=== PATIENT | female | born 1940 | race Caucasian/White ===

== ENCOUNTER 2016-08-02 09:21 | Inpatient (IN) ==
[2016-08-02] MEDS ORDERED: LASIX IV ONE (09:56)
[2016-08-02] MEDS ORDERED: DUONEB (A & A) INH ONE (09:56)
[2016-08-02 10:38] LABS: BASO% 0.1 % (0.0-0.8); EOS# 0.07 X1000 (0.0-0.7); EOS% 0.4 % (0.0-10.0); HEMATOCRIT 39.8 % (37.0-47.0); HEMOGLOBIN 13.6 g/dL (12.0-16.0); IMM GRAN# 0.03 X1000 (0.0-0.04); IMM GRAN% 0.2 % (0.0-0.5); INR 0.96; LYMPH# 0.92 X1000 (1.2-3.4); LYMPH% 5.9 % (20.5-51.1); MANUAL DIFF NEEDED? NO; MCH 30.3 PG (27-31); MCHC 34.2 g/dL (33-37); MCV 88.6 FL (81-99); MONO# 0.91 X1000 (0.11-0.59); MONO% 5.8 % (1.7-9.3); MPV 9.2 FL (7.4-10.4); NEUT% 87.6 % (42.2-75.2); PLT 297 X1000 (130-400); RBC 4.49 XMIL (4.2-5.4)
[2016-08-02 10:52] LABS: AGAP 17; ALKALINE PHOSPHATASE 84 U/L (32-104); BUN 12 mg/dL (8-22); CALCIUM 9.2 mg/dL (8.8-10.2); CHLORIDE 90 mmol/L (98-107); COSMO 274; GOT 34 U/L (10-30); GPT 19 U/L (10-36); MAGNESIUM 1.8 mg/dL (1.5-2.7); POTASSIUM 3.6 mmol/L (3.5-5.1); SODIUM 136 mmol/L (136-145); TCO2 29 mmol/L (25-35); TOTAL BILIRUBIN 0.85 mg/dL (0.20-1.00); TOTAL PROTEIN 7.3 g/dL (6.3-8.3)
[2016-08-02 11:01] LABS: CK PROFILE 336 U/L (24-173)
[2016-08-02 11:25] LABS: CK INDEX 1.9 (0.0-2.5); CK-MB 6.39 ng/mL (0.0-5.0)
[2016-08-02] MEDS ORDERED: ROCEPHIN 1 GM/NS 1 GM/50 ML IVPB IV ONE (11:26)
[2016-08-02] MEDS ORDERED: ZITHROMAX 500 MG/NS 500 MG/250 ML IVPB IV ONE (11:27)
--- NOTE | 2016-08-02 11:28 | EKG Report ---
Test Performed on : 08/02/2016 09:30:52 AM Test Reason : Chest Pain Blood Pressure : / mmHG Vent. Rate : 067 BPM Atrial Rate : 067 BPM P-R Int : 144 ms QRS Dur : 084 ms QT Int : 384 ms P-R-T Axes : 042 008 047 degrees QTc Int : 405 ms Normal sinus rhythm. Nonspecific ST and T wave abnormality Abnormal ECG When compared with ECG of 02-AUG-2016 09:30, (Unconfirmed) No significant change was found Unconfirmed Result
[2016-08-02] MEDS ORDERED: MORPHINE IV PRN (11:49)
[2016-08-02] MEDS ORDERED: NS 1,000 ML IV ONE (11:49)
--- NOTE | 2016-08-02 11:54 | PROVIDER DOCUMENTATION ---
This chart was entered by Yordan Cope Scribe, acting as scribe for Joy Diego Jr, MD. HPI-Respiratory General - General Chief Complaint: Shortness of Breath Stated Complaint: RESP. DISTRESS Time Seen by Provider: 08/02/16 09:32 Source: patient Allergies/Adverse Reactions: Patient Allergies Allergy/AdvReac Type Severity Reaction Status Date / Time acetaminophen [From Tylenol] Allergy Intermediate FLUSHING Verified 07/11/14 16: 12 budesonide [From Symbicort] Allergy Intermediate SHORTNESS Verified 07/11/14 16: 12 OF BREATH celecoxib [From Celebrex] Allergy Intermediate NAUSEA Verified 07/11/14 16:12 formoterol fumarate * Allergy Intermediate SHORTNESS Verified 07/11/14 16:12 [From Symbicort] OF BREATH meloxicam [From Mobic] Allergy Intermediate NAUSEA Verified 07/11/14 16:12 Penicillins Allergy Intermediate HIVES Verified 07/11/14 16:12 Sulfa (Sulfonamide Allergy Intermediate RASH Verified 07/11/14 16:12 Antibiotics) [Sulfa(Sulfonamide Antibiotics)] pregabalin [From Lyrica] Allergy Unknown DRY COUGH Verified 01/13/15 23:30 methocarbamol [From Robaxin] AdvReac SHORTNESS Verified 01/13/15 23:30 OF BREATH Home Medications: Home Medication List Medication Instructions Recorded Confirmed Last Taken Type ATORVAstatin [Lipitor] 40 mg PO QHS 08/02/16 08/02/16 08/02/16 07:00 History 40 MG Amlodipine Besylate 2.5 mg PO DAILY 08/02/16 08/02/16 08/02/16 07:00 History 2.5 MG Aspirin EC 81 mg PO DAILY 08/02/16 08/02/16 08/02/16 07:00 History 81 MG Duloxetine [Cymbalta] 30 mg PO BID 08/02/16 08/02/16 08/02/16 07:00 History 30 MG Furosemide 40 mg PO DAILY 08/02/16 08/02/16 08/02/16 07:00 History 40 MG Levothyroxine [Synthroid] 100 microgm PO DAILY 08/02/16 08/02/16 08/02/16 07:00 History 100 MICROGM Losartan/Hctz [Hyzaar 100/12.5 mg 1 each PO DAILY 08/02/16 08/02/16 08/02/16 07: 00 History Tab] 1 EACH Nebivolol HCl [Bystolic] 10 mg PO DAILY 08/02/16 08/02/16 08/02/16 07:00 History 10 MG Potassium Chloride [Klor-Con 10] 10 meq PO DAILY 08/02/16 08/02/16 08/02/16 07: 00 History 10 MEQ Tiotropium [place] Inhaler 18 mcg IH DAILY 08/02/16 08/02/16 08/02/16 07:00 History [Spiriva] 18 MCG - History of Present Illness-Resp Nature of Presenting Problem: patient is a 75 y/o F that presents with 24 hours of shortness of breath. Report today it is worse and worse with coughing/exertion. Patient reports a productive cough(yellow/green sputum). Denies fever but does have pain all over. She is on 02 at home 18/10 at 4lpms. Patient's RA saturation was 77% on arrival to ER> Quality of Pain: reports: tightness Severity in ED: reports: moderate Onset/Duration: reports: gradual, 24 hours ago Timing: reports: still present, getting worse Context: denies: out of meds, aspiration/choking Cough Quality/Degree: reports: moderate, productive cough, sputum (yellow,green) Episode Frequency: frequent episodes Current Respiratory Medication Therapy: Initiated see nurses note Modifying Factors: worse with: exertion, coughing Associated Symptoms: reports: cough, hurts to breathe, shortness of breath, short of breath, wheezing. denies: earache, flu-like symptoms, nasal congestion , nasal drainage Similar Symptoms Previously?: Yes Recently seen or treated by another doctor?: No Review of Systems - Adult - REVIEW OF SYSTEMS - ADULT Constitutional: denies: chills, fever Eyes: denies: decreased vision, blurred vision, double vision Ears, Nose, Mouth & Throat: denies: ear pain, epistaxis, sinus problem, throat pain, throat swelling Cardiovascular: denies: chest pain, palpitations Respiratory: reports: cough, dyspnea on exertion, shortness of breath, wheezing Gastrointestinal: denies: abdominal pain, diarrhea, nausea, vomiting Genitourinary: reports: no symptoms reported Musculoskeletal: reports: muscle aches. denies: bone pain, back pain, joint pain, neck pain Integumentary: reports: no symptoms reported Neurological: denies: dizziness/vertigo, headache/migraines, seizure, syncope Psychiatric: reports: no symptoms reported Endocrine: reports: no symptoms reported Hematologic/Lymphatic: reports: no symptoms reported Allergic/Immunologic: reports: no symptoms reported All Other Systems: Reviewed and Negative Past History - Adult - PAST MEDICAL HISTORY-ADULT Review of Records: reports: Old Records Reviewed, Nursing Assessment Review, Medications Reviewed Cardiovascular: reports: CAD, HTN, hyperlipidemia Respiratory: reports: asthma, COPD Gastrointestinal: reports: GERD Neurological: reports: TIA Other Conditions: reports: other (skin CA) - PRIOR SURGERIES/PROCEDURES Surgical/Procedure History: reports: hysterectomy, tonsillectomy, joint replacement - IMMUNIZATION STATUS Childhood Immunizations: See Nurse Assessment Flu Vaccine: See Nurse Assessment - FAMILY HISTORY Family History: reviewed, not pertinent - SOCIAL HISTORY Smoking: quit greater than 1 year, cigarettes Living Situation: family Physical Exam-General - PHYSICAL EXAM-ADULT Initial Vital Signs Reviewed: Yes - CONSTITUTIONAL General Appearance: alert, mild distress, obese - EYES Eyes: PERRL/EOMI, pink conjunctivae - HEAD, EARS, NOSE, MOUTH & THROAT HENMT: normocephalic/atraumatic, moist mucous membranes, normal ENT inspection - NECK Neck: non-tender, full range of motion, normal inspection - RESPIRATORY Respiratory: no respiratory distress, no accessory muscle use, rhonchi ( bilateral, more on the right than left), wheezing (expiratory) - CARDIOVASCULAR Cardiovascular: regular rate, rhythm, no murmur - GASTROINTESTINAL (ABDOMEN) Abdominal Exam: normal bowel sounds, non tender, soft - MUSCULOSKELETAL Extremity: normal range of motion, no pedal edema, no calf tenderness - SKIN Integumentary: warm/dry, other (bandage to right foot) - NEUROLOGIC Neurologic: grossly normal, no motor/sensory deficits - PSYCHIATRIC Psych/Mental Status: normal mood/affect, normal thought content, normal thought process, oriented x 3 Progress - PLAN OF CARE/RESULTS Progress/Plan/Lab Results: Vital Signs - 8 hr 08/02/16 09:40 08/02/16 10:15 08/02/16 11:00 Temperature 99.1 F Pulse Rate 67 73 70 Respiratory Rate 24 21 Blood Pressure 149/66 149/66 O2 Sat by Pulse Oximetry 95 94 L Laboratory Results - last 24 hr 08/02/16 08/02/16 08/02/16 09:35 09:35 09:35 WBC 15.72 H RBC 4.49 Hgb 13.6 Hct 39.8 MCV 88.6 MCH 30.3 MCHC 34.2 RDW Std Deviation 13.3 Plt Count 297 MPV 9.2 Immature Gran % (Auto) 0.2 Neut % (Auto) 87.6 H Lymph % (Auto) 5.9 L Ulster % (Auto) 5.8 Eos % (Auto) 0.4 Baso % (Auto) 0.1 Immature Gran # (Auto) 0.03 Neut # (Auto) 13.77 H Lymph # (Auto) 0.92 L Ulster # (Auto) 0.91 H Eos # (Auto) 0.07 Baso # (Auto) 0.02 PT INR PTT (Actin FS) Sodium 136 Potassium 3.6 Chloride 90 L Carbon Dioxide 29 Anion Gap 17 BUN 12 Creatinine 0.6 Estimated GFR/1.73 m2 > 60 BUN/Creatinine Ratio 20 Glucose 137 H Calculated Osmolality 274 Calcium 9.2 Magnesium 1.8 Total Bilirubin 0.85 AST 34 H ALT 19 Alkaline Phosphatase 84 Creatine Kinase 336 H Creatine Kinase Index 1.9 CK-MB (CK-2) 6.39 H Troponin T Ufb-G-Oteyszrnnaf Pept 445 Total Protein 7.3 Albumin 4.0 Globulin 3.3 Albumin/Globulin Ratio 1.2 08/02/16 08/02/16 09:35 09:35 WBC RBC Hgb Hct MCV MCH MCHC RDW Std Deviation Plt Count MPV Immature Gran % (Auto) Neut % (Auto) Lymph % (Auto) Ulster % (Auto) Eos % (Auto) Baso % (Auto) Immature Gran # (Auto) Neut # (Auto) Lymph # (Auto) Ul[place] # (Auto) Eos # (Auto) Baso # (Auto) PT 10.0 INR 0.96 PTT (Actin FS) 25.0 Sodium Potassium Chloride Carbon Dioxide Anion Gap BUN Creatinine Estimated GFR/1.73 m2 BUN/Creatinine Ratio Glucose Calculated Osmolality Calcium Magnesium Total Bilirubin AST ALT Alkaline Phosphatase Creatine Kinase Creatine Kinase Index CK-MB (CK-2) Troponin T < 0.010 Jxa-B-Eojbigaysry Pept Total Protein Albumin Globulin Albumin/Globulin Ratio Orders Category Date Time Status Admit - [facility] Routine AdmDCTranf 08/02/16 11:49 Ordered Activity - Bed Rest with BRP ORDERED Care 08/02/16 11:49 Active Call Admitting on Arrival AT ADMISSION Care 08/02/16 11:50 Active Cardiac Monitoring DIRECTED Care 08/02/16 10:00 Active Oxygen Therapy- ED Nursing DIRECTED Care 08/02/16 10:00 Active Saline Loc NOW Care 08/02/16 10:00 Active Vital Signs Order ROUTINE Care 08/02/16 11:49 Active Heart Healthy Diet Diet 08/02/16 11:51 Active CHEST-2 VIEWS [RAD] Stat Exams 08/02/16 10:00 Taken CBC WITH ELECTRONIC DIFF [HEME] Stat Lab 08/02/16 09:35 Completed CK PROFILE [SP CHEM] Stat Lab 08/02/16 09:35 Completed COMPREHENSIVE METABOLIC PANEL [CHEM] Stat Lab 08/02/16 09:35 Completed MAGNESIUM [CHEM] Stat Lab 08/02/16 09:35 Completed PRO B-NATRIURETIC PEPTIDE Stat Lab 08/02/16 09:35 Completed PROTIME WITH INR [COAG] Stat Lab 08/02/16 09:35 Completed PTT [COAG] Stat Lab 08/02/16 09:35 Completed SPUTUM CULTURE WITH GRAM STAIN [RM] Routine Lab 08/02/16 11:50 Ordered TROPONIN T Stat Lab 08/02/16 09:35 Completed 0.9% Sodium Chloride Inj [Ns] 1,000 ml Med 08/02/16 11:49 Active IV 100 mls/hr Albuterol 2.5MG/Ipratrop 0.5MG [Duoneb (A & A)] Med 08/02/16 09:56 Discontinued 3 ml INH NOW ONE Albuterol 2.5MG/Ipratrop 0.5MG [Duoneb (A & A)] Med 08/02/16 15:30 Ordered 3 ml INH RTQ4H Azithromycin 500 mg/Ns [Zithromax 500 mg/Ns] Med 08/02/16 11:27 Active 500 mg in 250 ml IV NOW CefTRIAXONE 1 GM/NS [Rocephin 1 gm/Ns] Med 08/02/16 11:26 Active 1 gm in 50 ml IV NOW Furosemide [Lasix] Med 08/02/16 09:56 Discontinued 40 mg IV NOW ONE Morphine Med 08/02/16 11:49 Active 2 mg IV Q2H PRN PRN Aerosol Treatments Routine Oth 08/02/16 09:56 Active Aerosol Treatments Routine Oth 08/02/16 11:52 Active Aerosol Treatments Stat Oth 08/02/16 09:56 Active Aerosol Treatments Stat Oth 08/02/16 11:52 Active Oxygen Device Routine Ot 08/02/16 11:50 Active EKG [EKG] Stat Ther 08/02/16 10:00 Draft Transfer/Admit Order [TRANSFER] Routine Transfer 08/02/16 11:52 Ordered Vital Signs Temp Pulse Resp BP Pulse Ox 08/02/16 11:00 70 149/66 94 L 08/02/16 10:15 73 21 08/02/16 09:40 99.1 F 67 24 149/66 95 acetaminophen [From Tylenol] Allergy (Intermediate, Verified 07/11/14 16:12) FLUSHING budesonide [From Symbicort] Allergy (Intermediate, Verified 07/11/14 16:12) SHORTNESS OF BREATH celecoxib [From Celebrex] Allergy (Intermediate, Verified 07/11/14 16:12) NAUSEA formoterol fumarate * [From Symbicort] Allergy (Intermediate, Verified 07/11/14 16:12) SHORTNESS OF BREATH meloxicam [From Mobic] Allergy (Intermediate, Verified 07/11/14 16:12) NAUSEA Penicillins Allergy (Intermediate, Verified 07/11/14 16:12) HIVES Sulfa (Sulfonamide Antibiotics) [Sulfa(Sulfonamide Antibiotics)] Allergy ( Intermediate, Verified 07/11/14 16:12) RASH pregabalin [From Lyrica] Allergy (Unknown, Verified 01/13/15 23:30) DRY COUGH methocarbamol [From Robaxin] Adverse Reaction (Verified 01/13/15 23:30) SHORTNESS OF BREATH ATORVAstatin [Lipitor] 40 mg PO QHS 08/02/16 Amlodipine Besylate 2.5 mg PO DAILY 08/02/16 Aspirin EC 81 mg PO DAILY 08/02/16 Duloxetine [Cymbalta] 30 mg PO BID 08/02/16 Furosemide 40 mg PO DAILY 08/02/16 Levothyroxine [Synthroid] 100 microgm PO DAILY 08/02/16 Losartan/Hctz [Hyzaar 100/12.5 mg Tab] 1 each PO DAILY 08/02/16 Nebivolol HCl [Bystolic] 10 mg PO DAILY 08/02/16 Potassium Chloride [Klor-Con 10] 10 meq PO DAILY 08/02/16 Tiotropium [place] Inhaler [Spiriva] 18 mcg IH DAILY 08/02/16 I&O 08/01/16 08/02/16 08/03/16 06:59 06:59 06:59 Output Total 100 / 100 Balance -100 / -100 Laboratory 08/02/16 08/02/16 08/02/16 09:35 09:35 09:35 WBC RBC Hgb Hct MCV MCH MCHC RDW Std Deviation Plt Count MPV Immature Gran % (Auto) Neut % (Auto) Lymph % (Auto) [place] % (Auto) Eos % (Auto) Baso % (Auto) Immature Gran # (Auto) Neut # (Auto) Lymph # (Auto) [place] # (Auto) Eos # (Auto) Baso # (Auto) PT 10.0 INR 0.96 PTT (Actin FS) 25.0 Sodium Potassium Chloride Carbon Dioxide Anion Gap BUN Creatinine Estimated GFR/1.73 m2 BUN/Creatinine Ratio Glucose Calculated Osmolality Calcium Magnesium Total Bilirubin AST ALT Alkaline Phosphatase Creatine Kinase Creatine Kinase Index CK-MB (CK-2) Troponin T < 0.010 Ywv-A-Nauqjafucek Pept 445 Total Protein Albumin Globulin Albumin/Globulin Ratio 08/02/16 08/02/16 09:35 09:35 WBC 15.72 H RBC 4.49 Hgb 13.6 Hct 39.8 MCV 88.6 MCH 30.3 MCHC 34.2 RDW Std Deviation 13.3 Plt Count 297 MPV 9.2 Immature Gran % (Auto) 0.2 Neut % (Auto) 87.6 H Lymph % (Auto) 5.9 L [place] % (Auto) 5.8 Eos % (Auto) 0.4 Baso % (Auto) 0.1 Immature Gran # (Auto) 0.03 Neut # (Auto) 13.77 H Lymph # (Auto) 0.92 L [place] # (Auto) 0.91 H Eos # (Auto) 0.07 Baso # (Auto) 0.02 PT INR PTT (Actin FS) Sodium 136 Potassium 3.6 Chloride 90 L Carbon Dioxide 29 Anion Gap 17 BUN 12 Creatinine 0.6 Estimated GFR/1.73 m2 > 60 BUN/Creatinine Ratio 20 Glucose 137 H Calculated Osmolality 274 Calcium 9.2 Magnesium 1.8 Total Bilirubin 0.85 AST 34 H ALT 19 Alkaline Phosphatase 84 Creatine Kinase 336 H Creatine Kinase Index 1.9 CK-MB (CK-2) 6.39 H Troponin T Ufx-D-Kmsfbxyosin Pept Total Protein 7.3 Albumin 4.0 Globulin 3.3 Albumin/Globulin Ratio 1.2 Result Diagrams: 08/02/16 09:35 08/02/16 09:35 - EKG 1 Time of EKG reading by physician:: 09:54 EKG Read and Signed by:: Joy Diego Jr EKG Interpretation (*Must complete 3 of following elements*): Abnormal Rate: 67 Rhythm: NSR Browning: normal QRS: normal VT Interval: normal ST Wave: non-specific ST changes - XRAY 1 XRAY Study: Chest Impression: Abnormal XRAY Interpretation: bilateral pleural effusions, possible pneumonia - CONSULTS/PCP/HOSPITALIST Notification #1 *Consult/PCP/Hospitalist*: Time Discussed: 11:47 Reason/Comments: COPD exacerbation, dyspnea Consult Disposition: Admit Departure - Departure Time of Disposition Decision: 11:48 DIAGNOSIS: COPD exacerbation, Dyspnea on exertion, Community acquired pneumonia Disposition: ADMITTED INPATIENT 09 Certified Medical Emergency: Emergent Condition: Stable Referrals and Follow-Ups: Seth Greer MD [Primary Care Provider] - - Critical Care Note This patient required my direct & personal management of CC.: No This chart was documented by the indicated scribe, (Yordan Cope, Scribe) and accurately reflects the services I performed and decisions made by me, Joy Diego Jr, MD, as attested by the provider's signature.
--- NOTE | 2016-08-02 12:17 | Diag Imaging Result Document ---
PROCEDURE NAME: CHEST-2 VIEWS - 08/02/2016 CHEST, 2 VIEWS: COMPARISON: 01/13/2015. FINDINGS: Stable hyperexpanded lungs with flattening of the diaphragms compatible with COPD. No focal infiltrates, pneumothorax, or pleural effusion. Heart size is normal. IMPRESSION: COPD. No change from prior.
[2016-08-02] MEDS: DUONEB (A & A) INH SCH ×3 (16:30→23:15)
[2016-08-02] MEDS: BROVANA NEB INH SCH (19:15)
[2016-08-02] MEDS: LIPITOR PO SCH (20:51)
[2016-08-02] MEDS: CYMBALTA PO SCH (20:51)
[2016-08-03] MEDS: DUONEB (A & A) INH SCH ×6 (03:05→22:55)
[2016-08-03] MEDS: SYNTHROID PO SCH (06:24)
[2016-08-03] MEDS ORDERED: BROVANA NEB ONE (07:00)
[2016-08-03] MEDS: BROVANA NEB INH SCH ×2 (08:00→19:37)
[2016-08-03] MEDS: SPIRIVA INH SCH (08:01)
[2016-08-03] MEDS: LASIX PO SCH (08:50)
[2016-08-03] MEDS: CYMBALTA PO SCH ×2 (08:50→21:25)
[2016-08-03] MEDS: HYZAAR 100/12.5 MG TAB PO SCH (08:50)
[2016-08-03] MEDS: ASPIRIN EC PO SCH (08:50)
[2016-08-03] MEDS ORDERED: NORVASC PO SCH (09:00)
--- NOTE | 2016-08-03 09:23 | PROGRESS NOTE ---
DATE: 08/03/2016 Ms. Varela is doing somewhat better. Her wheezing is better. She says she is feeling somewhat better. We will repeat a chest x-ray tomorrow. Overall condition is unchanged. -9 cc: Seth Greer MD
[2016-08-03] MEDS: ROCEPHIN 1 GM/NS 1 GM/50 ML IVPB IV SCH (14:27)
[2016-08-03] MEDS: ZITHROMAX 500 MG/NS 500 MG/250 ML IVPB IV SCH (16:00)
[2016-08-03] MEDS: LIPITOR PO SCH (21:25)
[2016-08-04] MEDS: DUONEB (A & A) INH SCH ×6 (03:29→22:55)
[2016-08-04] MEDS: SYNTHROID PO SCH (06:28)
--- NOTE | 2016-08-04 07:52 | Diag Imaging Result Document ---
PROCEDURE NAME: CHEST-2 VIEWS - 08/04/2016 FRONTAL AND LATERAL CHEST, TWO VIEWS: COMPARISON: 08/02/2016. FINDINGS: The lungs are hyperexpanded. The heart is not enlarged. The vessels are not distended. Mild increased markings in the left base. No pleural effusions. IMPRESSION: 1. Emphysema. 2. Small left basilar infiltrate.
[2016-08-04] MEDS: SPIRIVA INH SCH (08:04)
[2016-08-04] MEDS: BROVANA NEB INH SCH ×2 (08:04→19:50)
[2016-08-04] MEDS: ASPIRIN EC PO SCH (09:38)
[2016-08-04] MEDS: LASIX PO SCH (09:38)
[2016-08-04] MEDS: HYZAAR 100/12.5 MG TAB PO SCH (09:38)
[2016-08-04] MEDS: CYMBALTA PO SCH ×2 (09:39→22:01)
--- NOTE | 2016-08-04 09:42 | PROGRESS NOTE ---
DATE: 08/04/2016 SUBJECTIVE: Ms. Varela is doing better, except that her blood pressure has been somewhat low, but the last blood pressure had come up. She wants us to cut down on the medicine. We will change Bystolic to 5 mg daily. I will also give her some cough syrup for the persistent cough. The last chest x-ray was done this morning, which showed that there is a small infiltrate on the left side and emphysema. Overall condition is otherwise unchanged. -7 cc: Seth Greer MD
[2016-08-04] MEDS: PHENERGAN WITH CODEINE LIQUID PO PRN ×2 (10:57→22:01)
[2016-08-04] MEDS: ZITHROMAX 500 MG/NS 500 MG/250 ML IVPB IV SCH (16:19)
[2016-08-04] MEDS: ROCEPHIN 1 GM/NS 1 GM/50 ML IVPB IV SCH (16:19)
[2016-08-04] MEDS: LIPITOR PO SCH (22:01)
[2016-08-05] MEDS: DUONEB (A & A) INH SCH ×6 (04:03→22:54)
[2016-08-05] MEDS: SYNTHROID PO SCH (06:12)
[2016-08-05] MEDS: PHENERGAN WITH CODEINE LIQUID PO PRN ×3 (06:16→21:19)
[2016-08-05] MEDS: SPIRIVA INH SCH (08:04)
[2016-08-05] MEDS: BROVANA NEB INH SCH ×2 (08:04→19:46)
[2016-08-05] MEDS: LASIX PO SCH (09:07)
[2016-08-05] MEDS: ASPIRIN EC PO SCH (09:07)
[2016-08-05] MEDS: HYZAAR 100/12.5 MG TAB PO SCH (09:07)
[2016-08-05] MEDS: CYMBALTA PO SCH ×2 (09:07→21:19)
--- NOTE | 2016-08-05 09:33 | PROGRESS NOTE ---
DATE: 08/05/2016 SUBJECTIVE: Ms. Varela is doing better. Her lungs still sound congested. She is on IV antibiotics, intermittently gets Lasix. She is still coughing persistently. We will repeat the chest x-ray in the morning if she is feeling better. -1 cc: Seth Greer MD
[2016-08-05] MEDS: ROCEPHIN 1 GM/NS 1 GM/50 ML IVPB IV SCH (13:35)
[2016-08-05] MEDS: ZITHROMAX 500 MG/NS 500 MG/250 ML IVPB IV SCH (15:35)
[2016-08-05] MEDS: LIPITOR PO SCH (21:19)
[2016-08-06] MEDS: DUONEB (A & A) INH SCH ×2 (03:56→07:59)
[2016-08-06] MEDS: SYNTHROID PO SCH (06:57)
[2016-08-06 07:44] VITALS: BP 102/67
[2016-08-06] MEDS: SPIRIVA INH SCH (07:59)
[2016-08-06] MEDS: BROVANA NEB INH SCH (07:59)
--- NOTE | 2016-08-06 09:37 | Diag Imaging Result Document ---
PROCEDURE NAME: CHEST-2 VIEWS - 08/06/2016 TWO VIEWS OF THE CHEST: FINDINGS: There are severe degenerative changes in the shoulders bilaterally. The heart size and pulmonary vascularity are within normal limits. Compared to 08/04/2016, the opacities in the left base have improved slightly. IMPRESSION: Improved atelectasis or pneumonia, left lower lobe.
[2016-08-06] MEDS: ASPIRIN EC PO SCH (09:46)
[2016-08-06] MEDS: LASIX PO SCH (09:46)
[2016-08-06] MEDS: HYZAAR 100/12.5 MG TAB PO SCH (09:46)
[2016-08-06] MEDS: CYMBALTA PO SCH (09:46)
--- NOTE | 2016-08-06 12:05 | PROGRESS NOTE ---
DATE: 08/06/2016 SUBJECTIVE: Ms. Varela is doing better. Her chest x-ray shows much improvement. Lungs sound clear. She feels better. Vital signs are stable. We will discharge her today home. cc: Seth Greer MD
--- NOTE | 2016-08-06 20:11 | DISCHARGE SUMMARY ---
ADMISSION DATE: 08/02/2016 DISCHARGE DATE: 08/06/2016 HISTORY OF PRESENT ILLNESS: Ms. Varela is a 75-year-old white female who was admitted with bilateral pneumonia with mild pleural effusion. Initial chest x-ray showed the same. Chest x-ray done this morning revealed improved atelectasis and pneumonia in the left lower lobe. LABORATORY DATA: CBC initially revealed white count of 15.72, INR 0.96, proBNP 445, troponin levels are negative. Electrolytes are normal. Glucose was 137. AST was 34. Creatine kinase was 336. Serum plasma lactate was 2.1. COURSE IN THE HOSPITAL: She was treated with her bronchodilators. She was also given ceftriaxone and azithromycin which she received for about 4 solid days. She received some cough syrup. We will be discharging her with Ceftin 250 mg b.i.d. for 5 days and 5 ounces of Phenergan with codeine cough syrup. DIAGNOSES: 1. Bilateral pneumonia and bilateral pleural effusion. 2. Chronic obstructive pulmonary disease. 3. Hypertension. 4. Hyperlipidemia. 5. Hypothyroidism. FOLLOWUP: I will see her in the office in about 4-5 days. cc: Seth Greer MD
== END 2016-08-06 13:15 | disposition home or self-care (01) ==
LOC: ED 09:21 → 3N 13:03
PROVIDERS: ADMIT Internal Medicine; ATTEND Internal Medicine

== ENCOUNTER 2018-11-09 11:19 | Inpatient (IN) ==
[2018-11-09] MEDS ORDERED: ROCEPHIN 1 GM in NS 50 ML IV ONE (13:00)
--- NOTE | 2018-11-09 13:49 | EKG Report ---
Test Performed on : 11/09/2018 1:44:43 PM Test Reason : CHEST PAIN Blood Pressure : / mmHG Vent. Rate : 059 BPM Atrial Rate : 059 BPM P-R Int : 146 ms QRS Dur : 086 ms QT Int : 432 ms P-R-T Axes : 056 009 065 degrees QTc Int : 427 ms Sinus bradycardia. Nonspecific T wave abnormality Abnormal ECG When compared with ECG of 08-AUG-2017 11:58, Nonspecific T wave abnormality now evident in Lateral leads Confirmed by Myrtle Rice MD ([id number]) on 11/10/2018 4:27:43 PM
--- NOTE | 2018-11-09 13:54 | Diag Imaging Result Doc PS360 ---
EXAM: CHEST-1 VIEW HISTORY: COPD TECHNIQUE: Single view COMPARISON: 06/20/2018 FINDINGS: Poor inspiratory effort. The heart is not enlarged. The vessels are not distended. There are no infiltrates. No effusion identified. IMPRESSION: Negative exam. Electronically signed by Roverto Dale 11/09/2018 1:52 PM
[2018-11-09 14:43] LABS: BASO# 0.03 X1000 (0.0-0.2); BASO% 0.2 % (0.0-0.8); EOS# 0.04 X1000 (0.0-0.7); EOS% 0.2 % (0.0-10.0); HEMATOCRIT 32.5 % (37.0-47.0); HEMOGLOBIN 10.5 g/dL (12.0-16.0); IMM GRAN# 0.09 X1000 (0.0-0.04); IMM GRAN% 0.5 % (0.0-0.5); LYMPH# 1.03 X1000 (1.2-3.4); LYMPH% 6.2 % (20.5-51.1); MCH 28.8 PG (27-31); MCHC 32.3 g/dL (33-37); MONO# 1.21 X1000 (0.11-0.59); MONO% 7.3 % (1.7-9.3); MPV 8.8 FL (7.4-10.4); NEUT# 14.11 X1000 (1.4-6.5); NEUT% 85.6 % (42.2-75.2); PLT 287 X1000 (130-400); RBC 3.65 XMIL (4.2-5.4); RDW 14.5 % (11.5-14.5); WBC 16.51 X1000 (4.8-10.8)
[2018-11-09 14:45] LABS: ESTIMATED GFR > 60
[2018-11-09 14:48] LABS: AGAP 13; ALB/GLOB RATIO 1.2; ALBUMIN 2.9 g/dL (3.5-5.0); ALKALINE PHOSPHATASE 98 U/L (32-104); BUN 27 mg/dL (8-22); CALCIUM 8.4 mg/dL (8.8-10.2); CHLORIDE 88 mmol/L (98-107); COSMO 275; CREATININE 0.7 mg/dL (0.5-0.9); GLUCOSE 130 mg/dL (70-104); GOT 21 U/L (10-30); GPT 17 U/L (10-36); SODIUM 134 mmol/L (136-145); TCO2 33 mmol/L (25-35); TOTAL BILIRUBIN 0.52 mg/dL (0.20-1.00); TOTAL PROTEIN 5.4 g/dL (6.3-8.3)
[2018-11-09 15:53] LABS: LYMPHS 9 % (21-51); MONO 5 % (1-9); SEGS 86 % (42-75)
[2018-11-09 18:32] LABS: ALLEN TEST YES; BE 11.8 mmoll (-3.0-3.0); BLOOD TYPE ARTERIAL; HCO3-(ACT) 34.1 mmoll (20.0-26.0); O2(CT) 15.1 mL/dL (15.0-23.0); O2HB 95.9 % (95.0-99.0); PO2(98.6) 106 mmHg (60-100); SAMPLE BLOOD; SAO2 97.9 % (95.0-100.0); THB 11.1 g/dL (11.5-17.4); pH(98.6) 7.42 (7.35-7.45)
[2018-11-09 18:35] LABS: MODALITY CANNULA; PCO2(98.6) 59 mmHg (35-45)
--- NOTE | 2018-11-09 19:44 | HISTORY AND PHYSICAL ---
HISTORY OF PRESENT ILLNESS: Ms. Varela, who is a 77-year-old white female, comes with severe shortness of breath. She has a known case of COPD. She was hypoxic. Her oxygen level was 94% at 6 L of oxygen going through nasal cannula. She had persistent cough, shortness of breath, known case of COPD with carcinoma of the lung and so she was admitted to the hospital. Other details of personal, past, and family history revealed a past surgical history of both knees and both hip replacements, she had bilateral breast surgery for non-cancerous tumors taken out. She also had a hysterectomy. She had a cardiac cath done. She also had a CT-guided lung biopsy done on her. SOCIAL HISTORY: She used to smoke for 40 years; however, for since the early she has stopped smoking. Does not drink. ALLERGIES: She is allergic to methocarbamol, acetaminophen, budesonide, celecoxib, et cetera. REVIEW OF SYSTEMS: Other than generalized weakness and shortness of breath, cough with expectoration with occasional hemoptysis, it is negative. PHYSICAL EXAMINATION: VITAL SIGNS: Temperature normal, pulse 90 per minute and regular, respiratory rate 22 per minute, blood pressure was 100/80. HEAD AND EYES: Head normocephalic. Pupils PERRLA. Fundus examination not done. NECK: Supple. JVP normal. ENT: Examination unremarkable. LYMPH NODES: There is no evidence of lymphadenopathy, thyroid enlargement, pedal edema, calf tenderness, anemia, cyanosis or clubbing. Pedal pulses are well felt. BREAST EXAM: Normal. CHEST: Normal to inspection. LUNGS: Clear on auscultation except for bilateral expiratory wheezing. PMI in the normal position. HEART: Sounds normal. No murmur, gallop or rub noted. ABDOMEN: Nondistended. Hernial orifices normal. No guarding, rigidity, free fluid, masses, or organomegaly. Bowel sounds normal. RECTAL: Deferred. EXTRUDING PRESS ADJUSTER: Higher functions normal. Patient apprehensive. Cranial nerves normal. Motor and sensory system examination unremarkable. Deep tendon reflexes normal. Plantars downgoing. Skull and spine examination normal for age. No cerebellar signs or signs of meningeal irritation on locomotor system. SKIN: Unremarkable. CLINICAL IMPRESSION: 1. Acute exacerbation of chronic obstructive pulmonary disease. 2. History of carcinoma of the lung. 3. She is obese and has severe hypertension, had multiple surgeries, joint surgeries. PLAN: Start IV steroids, IV antibiotics, respiratory therapy. I will get a Pulmonary consult with Dr. Stubbs. cc: Seth Greer MD
[2018-11-09] MEDS: CYMBALTA PO SCH (22:28)
[2018-11-09] MEDS: SOLU-MEDROL IV SCH (22:28)
[2018-11-09] MEDS: ROCEPHIN 1 GM in NS 50 ML IV SCH (22:28)
[2018-11-09] MEDS: LEVAQUIN 500 MG/D5W 500 MG/100 ML IVPB IV SCH (22:50)
[2018-11-10] MEDS: DUONEB (A & A) INH SCH ×6 (01:06→23:44)
[2018-11-10] MEDS: SOLU-MEDROL IV SCH ×4 (06:23→22:37)
[2018-11-10] MEDS: BYSTOLIC PO SCH (09:21)
[2018-11-10] MEDS: LASIX IV SCH (09:21)
[2018-11-10] MEDS: HYZAAR 100/12.5 MG TAB PO SCH (09:21)
[2018-11-10] MEDS: CYMBALTA PO SCH ×2 (09:21→20:29)
--- NOTE | 2018-11-10 10:58 | PROGRESS NOTE ---
DATE: 11/10/2018 SUBJECTIVE: Ms. Varela is doing fairly well. Her lungs still reveal bilateral expiratory wheezing. She is on IV Solu-Medrol as well as respiratory therapy. We will continue with the current management on her. She is doing better today. cc: Seth Greer MD
--- NOTE | 2018-11-10 13:41 | CONSULTATION ---
DATE OF CONSULTATION: 11/10/2018 REQUESTING PROVIDER: Dr. Seth Downey. REASON FOR CONSULTATION: Chronic obstructive pulmonary disease exacerbation. HISTORY OF PRESENT ILLNESS: This is a 77-year-old female with a medical history of chronic obstructive pulmonary disease with stable nonspecific nodular changes in the lingula, morbid obesity, gastroesophageal reflux disease, peripheral vascular disease, skin cancer, hypothyroidism, hypertension, dyslipidemia, congestive heart failure and osteoarthritis. She has been directly admitted from Dr. Downey's office since yesterday with worsening severe shortness of breath. Chest x-ray from yesterday was nonsignificant. The patient currently sitting on the edge of the bed with no acute distress. She states she is feeling better. She reports severe shortness of breath with any activities, occasional dry cough and intermittent hemoptysis. She reports her hemoptysis actually is getting better compared with last month. She states that her stomach is growing as she cannot put her clothes on comfortably as she used to. She reports cloudy and smelling urine for 3 or 4 days. She feels like she has "kidney infection". She is complaining of some soreness on the left side of her back. She also has been running low fever at home for several days. She reports she had a good appetite and, although she feel her stomach is growing, she actually lost 12 pounds, as she noted. She reports no wheezing, chest pain, palpitation, constipation, diarrhea, nausea, vomiting, pain or burning sensation with urination. PAST MEDICAL HISTORY: 1. Chronic obstructive pulmonary disease, with stable nonspecific nodular changes in the lingula; followed up by Dr. Stubbs outpatient. She had an appointment for followup CT scan yesterday, but she did not make it because of severe SOB. Bronchoscopy done on 04/11/2017 and 07/26/[address] Stubbs. 2. Morbid obesity. Current BMI 43.8. 3. Gastroesophageal reflux disease. 4. Peripheral vascular disease. 5. History of skin cancer. 6. Hypothyroidism. 7. Hypertension. 8. Dyslipidemia. 9. History of esophagitis. 10. History of transient ischemic attack. 11. Congestive heart failure. 12. Osteoarthritis. PAST SURGICAL HISTORY: 1. Toe amputation in October 2016. 2. Bilateral hip surgery. 3. Bilateral knee surgery. 4. Spinal fusion. 5. Bilateral breast biopsy. 6. Cyst off of tailbone. 7. Balloon surgery. SOCIAL HISTORY: The patient was a former heavy smoker. She quit smoking in 1991. She has 28 pack-year history of smoking. She has no history of alcohol or illicit drug use. Her of Alzheimer's and Parkinson's disease 4 years ago. She has 3 children, 2 daughters and 1 son. One of the daughters living with her. The other daughter, who apparently has metastatic cancer, lives in [place]. She has 5 grand kids. FAMILY HISTORY: Mother of lung cancer. Father of stroke. One of her brothers of cancer. One of her daughters has metastatic cancer. ALLERGIES: Methocarbamol, acetaminophen, budesonide, sucralfate, formoterol, meloxicam, penicillin, sulfa, and pregabalin. REVIEW OF SYSTEMS: A 10-point review of systems was conducted and the pertinent is listed within the HPI, otherwise noncontributory. PHYSICAL EXAMINATION: Vital Signs: Temperature 98.2 degrees, blood pressure 131/67, pulse is 62, respiratory rate 15, oxygen saturation 98% on nasal cannula at 6 L. HEENT: Atraumatic, normocephalic. Trachea midline. Mucosa pink and moist. Respiratory: Breathing even and unlabored. Symmetrical excursion. Auscultation revealed diminished breathing sounds bibasilarly with early inspiratory crackles in the right lower lung zone. Cardiovascular: Regular rate and rhythm. Gastrointestinal: Soft, distended, obese, nontender except in the epigastric area. Normoactive bowel sounds in all 4 quadrants. Extremities: Right lower extremity pitting edema 1+ , trace edema on the left lower extremity. No cyanosis, no clubbing. Neurologic: Alert and oriented x3. Speech fluent. Follows commands. ASSESSMENT: This is a 77-year-old female with a medical history of chronic obstructive pulmonary disease, morbid obesity, gastroesophageal reflux disease, peripheral vascular disease, skin cancer, hypothyroidism, hypertension, dyslipidemia, congestive heart failure, and osteoarthritis. She has been admitted to the medical floor since yesterday, by Dr. Downey with worsening severe shortness of breath. 1. Acute hypoxic and hypercapnic respiratory failure. 2. Chronic obstructive pulmonary disease exacerbation. 3. Possible urinary tract infection. PLAN: 1. Continue supplemental oxygen as needed. 2. Continue antibiotic, steroid, and bronchodilators per Dr. Downey. 3. Follow up proBNP and blood culture. Check chest x-ray and ABG if indicated. 4. Further recommendations pending hospital course. Thank you for the courtesy of this consult. Dictated by JACKSON Benedict for Chauncey Lovelace MD cc: JACKSON Benedict MD Amit V. Vora, MD [facility]
[2018-11-10] MEDS: ULTRAM PO PRN (18:06)
[2018-11-10] MEDS: ROCEPHIN 1 GM in NS 50 ML IV SCH ×2 (20:34→22:37)
[2018-11-10] MEDS: LEVAQUIN 500 MG/D5W 500 MG/100 ML IVPB IV SCH (22:37)
[2018-11-11] MEDS: SOLU-MEDROL IV SCH ×3 (05:21→21:01)
[2018-11-11] MEDS: DUONEB (A & A) INH SCH ×5 (07:42→22:47)
[2018-11-11] MEDS: LASIX IV SCH (10:24)
[2018-11-11] MEDS: BYSTOLIC PO SCH (10:24)
[2018-11-11] MEDS: HYZAAR 100/12.5 MG TAB PO SCH (10:25)
[2018-11-11] MEDS: CYMBALTA PO SCH ×2 (10:25→21:02)
--- NOTE | 2018-11-11 12:29 | PROGRESS NOTE ---
DATE: 11/11/2018 SUBJECTIVE: Ms. Marry Varela is a 77-year-old white female patient, admitted with cough, chest congestion, wheezing and increasing shortness of breath. The patient does have underlying COPD, not responding to outpatient treatment. The patient was getting sicker. The patient also had hemoptysis. Her other problems were foul-smelling urine and symptoms suggestive of urinary tract infection. The patient does have complex past medical history, vague chest pain. No nausea or vomiting. History of weight gain. No diarrhea, blood or mucus in the stool. The patient does have arthritic pain. No runny nose, stuffy nose. Denied any leg swelling. Admission history and physical noted. PAST MEDICAL HISTORY: Significant for COPD, morbid obesity, gastritis and reflux disease, peripheral vascular disease, hypothyroidism, history of skin cancer, hypertension, hyperlipidemia, esophagitis, TIA, congestive heart failure, osteoarthritis. OBJECTIVE: Vital Signs: Her vital signs noted. Skin: No rash or petechiae. HEENT: Head atraumatic, normocephalic. [place]anger conjunctivae. Anicteric sclerae. Extraocular muscle movement normal. Fundus cannot be penetrated. Good oral hygiene. No tonsillopharyngeal congestion or exudate. Ears and nose benign. Neck: Supple. No JVD, thyromegaly or lymphadenopathy. Chest: Bibasilar crepitation. No rales. Occasional wheezing. CVS: S1 and S2 heard. A 2/6 systolic murmur at the apex. Abdomen: Soft, globular. Bowel sounds present. Extremities: No cyanosis, clubbing. PLAYGROUND SUPERVISOR: Alert, awake, able to move all 4 limbs. LABORATORY DATA: Done on admission. Reviewed. CONSIDERATION: 1. Chronic obstructive pulmonary disease exacerbation. 2. Morbid obesity. 3. Urinary tract infection. 4. Osteoarthritis. 5. History of skin cancer. 6. Hypothyroidism. 7. Hypertension. Her labs and medication noted. We will continue current treatment and close observation. I am going to decrease her steroid. cc: MD Seth Perez MD
[2018-11-11] MEDS: LEVAQUIN 500 MG/D5W 500 MG/100 ML IVPB IV SCH (21:01)
[2018-11-11] MEDS: ROCEPHIN 1 GM in NS 50 ML IV SCH (21:01)
[2018-11-12] MEDS: SOLU-MEDROL IV SCH ×4 (05:52→23:41)
[2018-11-12 07:06] LABS: BASO# 0.01 X1000 (0.0-0.2); BASO% 0.1 % (0.0-0.8); HEMOGLOBIN 11.5 g/dL (12.0-16.0); IMM GRAN# 0.09 X1000 (0.0-0.04); IMM GRAN% 0.6 % (0.0-0.5); LYMPH# 0.62 X1000 (1.2-3.4); LYMPH% 3.8 % (20.5-51.1); MCH 28.5 PG (27-31); MCHC 32.9 g/dL (33-37); MCV 86.6 FL (81-99); MONO# 0.81 X1000 (0.11-0.59); MPV 8.4 FL (7.4-10.4); NEUT# 14.79 X1000 (1.4-6.5); NEUT% 90.5 % (42.2-75.2); PLT 400 X1000 (130-400); RBC 4.04 XMIL (4.2-5.4); RDW 13.9 % (11.5-14.5); WBC 16.32 X1000 (4.8-10.8)
[2018-11-12 07:19] LABS: ESTIMATED GFR > 60
[2018-11-12 07:22] LABS: AGAP 13; BUN 22 mg/dL (8-22); CALCIUM 8.9 mg/dL (8.8-10.2); CHLORIDE 84 mmol/L (98-107); COSMO 272; CREATININE 0.6 mg/dL (0.5-0.9); GLUCOSE 203 mg/dL (70-104); POTASSIUM 3.4 mmol/L (3.5-5.1); SODIUM 131 mmol/L (136-145); TCO2 34 mmol/L (25-35)
--- NOTE | 2018-11-12 07:23 | Diag Imaging Result Doc PS360 ---
CHEST-1 VIEW - 11/12/2018 INDICATION: SOB COMPARISON: 11/09/2018 FINDINGS: The lungs are normally expanded and clear. Heart size and mediastinal contours are normal. No pneumothorax or pleural effusion. IMPRESSION: Negative exam. Electronically signed by Shawn Young 11/12/2018 7:21 AM
[2018-11-12] MEDS: DUONEB (A & A) INH SCH ×5 (07:46→22:48)
[2018-11-12 07:56] LABS: BANDS 2 % (0-1); LYMPHS 8 % (21-51); SEGS 90 % (42-75)
[2018-11-12] MEDS: HYZAAR 100/12.5 MG TAB PO SCH (09:08)
[2018-11-12] MEDS: CYMBALTA PO SCH ×2 (09:08→20:58)
[2018-11-12] MEDS: LASIX IV SCH (09:08)
[2018-11-12] MEDS: BYSTOLIC PO SCH (09:08)
[2018-11-12] MEDS ORDERED: KLOR-CON PO ONE (10:08)
--- NOTE | 2018-11-12 10:22 | PROGRESS NOTE ---
DATE: 11/12/2018 SUBJECTIVE: Marry is feeling better. The patient's cough and chest congestion are improving. Still has some wheezing. No nausea or vomiting. Dysuria is improving. No typical chest pain or palpitations. Denied any headache. OBJECTIVE: Vital signs: Noted. Neck: Supple. No JVD. Lungs: Bilateral good air entry present. Occasional wheezing. CVS: S1 and S2 heard. Abdomen: Soft, globular. Bowel sounds present. 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 ASSESSMENT: 1. Exacerbation of chronic obstructive pulmonary disease. 2. Urinary tract infection sepsis due to Escherichia coli. 3. The patient had history of hypothyroidism, gastritis, reflux disease, osteoarthritis and hypokalemia. LABORATORY DATA: Today revealed WBC count 16.32, hemoglobin 11.5, hematocrit 35, platelet count 400,000. Her potassium was 3.4. The patient was concerned about not getting her Norvasc and Synthroid which I am going to resume it. Continue rest of the treatment and close observation. I am going to supplement potassium. cc: MD Seth Perez MD
[2018-11-12] MEDS: NORVASC PO SCH (10:37)
[2018-11-12] MEDS: LEVAQUIN 500 MG/D5W 500 MG/100 ML IVPB IV SCH (20:57)
[2018-11-12] MEDS: ROCEPHIN 1 GM in NS 50 ML IV SCH (20:57)
[2018-11-13] MEDS: ULTRAM PO PRN (00:04)
[2018-11-13] MEDS: DUONEB (A & A) INH PRN (04:33)
[2018-11-13] MEDS: SYNTHROID PO SCH (06:28)
[2018-11-13] MEDS: SOLU-MEDROL IV SCH ×3 (06:28→21:11)
[2018-11-13] MEDS: DUONEB (A & A) INH SCH ×5 (07:46→22:12)
[2018-11-13] MEDS: KLOR-CON PO SCH (09:06)
[2018-11-13] MEDS: NORVASC PO SCH (09:06)
[2018-11-13] MEDS: BYSTOLIC PO SCH (09:06)
[2018-11-13] MEDS: LASIX IV SCH (09:07)
[2018-11-13] MEDS: HYZAAR 100/12.5 MG TAB PO SCH (09:07)
[2018-11-13] MEDS: CYMBALTA PO SCH ×2 (09:07→21:11)
[2018-11-13] MEDS: TESSALON PO PRN ×2 (09:36→18:29)
--- NOTE | 2018-11-13 09:36 | PROGRESS NOTE ---
DATE: 11/13/2018 SUBJECTIVE: Ms. Sanchez is doing somewhat better. She has persistent cough. She has E coli bacteremia, and she is on IV Rocephin as well as Levaquin, which are supposed to be very sensitive for the E coli. We will continue with the current management. cc: Seth Greer MD
[2018-11-13] MEDS: LEVAQUIN 500 MG/D5W 500 MG/100 ML IVPB IV SCH (21:12)
[2018-11-13] MEDS: ROCEPHIN 1 GM in NS 50 ML IV SCH (22:17)
[2018-11-14] MEDS: TESSALON PO PRN ×3 (02:30→20:23)
[2018-11-14] MEDS: DUONEB (A & A) INH PRN (04:48)
[2018-11-14] MEDS: SOLU-MEDROL IV SCH ×4 (05:08→20:23)
[2018-11-14] MEDS: SYNTHROID PO SCH (06:04)
[2018-11-14 07:03] LABS: BASO# 0.02 X1000 (0.0-0.2); BASO% 0.1 % (0.0-0.8); HEMATOCRIT 37.5 % (37.0-47.0); HEMOGLOBIN 12.4 g/dL (12.0-16.0); IMM GRAN# 0.47 X1000 (0.0-0.04); IMM GRAN% 2.8 % (0.0-0.5); LYMPH# 1.15 X1000 (1.2-3.4); LYMPH% 6.7 % (20.5-51.1); MCH 28.5 PG (27-31); MCHC 33.1 g/dL (33-37); MCV 86.2 FL (81-99); MONO# 0.89 X1000 (0.11-0.59); MONO% 5.2 % (1.7-9.3); MPV 8.5 FL (7.4-10.4); NEUT# 14.54 X1000 (1.4-6.5); NEUT% 85.2 % (42.2-75.2); PLT 470 X1000 (130-400); RBC 4.35 XMIL (4.2-5.4); RDW 13.6 % (11.5-14.5); WBC 17.07 X1000 (4.8-10.8)
--- NOTE | 2018-11-14 07:30 | Diag Imaging Result Doc PS360 ---
EXAM: CHEST-1 VIEW INDICATION: SOB TECHNIQUE: One view COMPARISON: 11/12/2018 FINDINGS: The lungs are grossly clear. There is no discrete pleural fluid collection or pneumothorax. The cardiomediastinal silhouette and central vasculature are grossly unremarkable. IMPRESSION: No evidence of acute pathology by plain radiograph. Electronically signed by Timothy Laws 11/14/2018 7:27 AM
[2018-11-14 07:44] LABS: ESTIMATED GFR > 60
[2018-11-14 07:46] LABS: AGAP 11; BUN 20 mg/dL (8-22); CALCIUM 8.7 mg/dL (8.8-10.2); CHLORIDE 79 mmol/L (98-107); COSMO 266; CREATININE 0.6 mg/dL (0.5-0.9); GLUCOSE 203 mg/dL (70-104); POTASSIUM 3.4 mmol/L (3.5-5.1); SODIUM 128 mmol/L (136-145); TCO2 38 mmol/L (25-35)
[2018-11-14] MEDS: DUONEB (A & A) INH SCH ×5 (08:00→22:44)
[2018-11-14] MEDS: NORVASC PO SCH (08:18)
[2018-11-14] MEDS: CYMBALTA PO SCH ×2 (08:18→20:23)
[2018-11-14] MEDS: BYSTOLIC PO SCH (08:18)
[2018-11-14] MEDS: HYZAAR 100/12.5 MG TAB PO SCH (08:18)
[2018-11-14] MEDS: KLOR-CON PO SCH (08:18)
[2018-11-14 08:20] LABS: BANDS 2 % (0-1); LYMPHS 6 % (21-51); MONO 2 % (1-9); SEGS 84 % (42-75)
[2018-11-14] MEDS: LASIX IV SCH (08:20)
--- NOTE | 2018-11-14 09:05 | PROGRESS NOTE ---
DATE: 11/14/2018 Ms. Varela is doing better. She has E. coli septicemia, severe COPD with acute exacerbation. She is on IV antibiotics, respiratory therapy, as well as IV Solu-Medrol. We will slowly taper the Solu-Medrol down later on. Her lungs still revealed some wheezing. Heart sounds are normal. Overall condition is stable. cc: Seth Greer MD
[2018-11-14] MEDS: ROCEPHIN 1 GM in NS 50 ML IV SCH (20:23)
[2018-11-14] MEDS: LEVAQUIN 500 MG/D5W 500 MG/100 ML IVPB IV SCH (20:23)
[2018-11-15] MEDS: SOLU-MEDROL IV SCH ×2 (05:00→18:53)
[2018-11-15] MEDS: SYNTHROID PO SCH (06:18)
[2018-11-15] MEDS: DUONEB (A & A) INH SCH ×5 (07:45→23:43)
[2018-11-15] MEDS: HYZAAR 100/12.5 MG TAB PO SCH (08:06)
[2018-11-15] MEDS: BYSTOLIC PO SCH (08:06)
[2018-11-15] MEDS: LASIX IV SCH (08:06)
[2018-11-15] MEDS: NORVASC PO SCH (08:06)
[2018-11-15] MEDS: KLOR-CON PO SCH (08:07)
[2018-11-15] MEDS: CYMBALTA PO SCH ×2 (08:07→20:47)
[2018-11-15] MEDS: TESSALON PO PRN ×2 (08:18→20:46)
--- NOTE | 2018-11-15 08:50 | PROGRESS NOTE ---
DATE: 11/15/2018 Ms. Varela is doing better. There is no wheezing. She has severe COPD and has an E. coli septicemia. We will try to reduce the steroids that she is on. She has been on methylprednisone 40 mg every 8 hours as prescribed by [facility] and we will continue that. We will let her try to decrease that. My goal is to probably send her home by Tuesday. cc: Seth Greer MD MTDD
[2018-11-15] MEDS: LEVAQUIN 500 MG/D5W 500 MG/100 ML IVPB IV SCH (20:46)
[2018-11-15] MEDS: ROCEPHIN 1 GM in NS 50 ML IV SCH (20:48)
[2018-11-16] MEDS: SOLU-MEDROL IV SCH ×2 (04:18→20:13)
[2018-11-16] MEDS: SYNTHROID PO SCH (06:22)
[2018-11-16] MEDS: DUONEB (A & A) INH SCH ×5 (07:37→23:29)
--- NOTE | 2018-11-16 08:58 | PROGRESS NOTE ---
DATE: 11/16/2018 SUBJECTIVE: Ms. Varela is feeling better. OBJECTIVE: Her lungs sound much clearer. Heart sounds are normal. LABORATORY DATA: Blood culture is final blood culture which is no growth after 5 days, probably in 1 bottle. PLAN: We are cutting down on her Solu-Medrol to 20 mg b.i.d. and hopefully we will discharge her tomorrow. -1 cc: Seth Greer MD
[2018-11-16] MEDS: HYZAAR 100/12.5 MG TAB PO SCH (09:05)
[2018-11-16] MEDS: KLOR-CON PO SCH (09:06)
[2018-11-16] MEDS: CYMBALTA PO SCH ×2 (09:06→20:13)
[2018-11-16] MEDS: NORVASC PO SCH (09:06)
[2018-11-16] MEDS: LASIX IV SCH (09:06)
[2018-11-16] MEDS: BYSTOLIC PO SCH (09:06)
[2018-11-16] MEDS: ULTRAM PO PRN (12:43)
[2018-11-16] MEDS: TESSALON PO PRN (20:12)
[2018-11-16] MEDS: LEVAQUIN 500 MG/D5W 500 MG/100 ML IVPB IV SCH (20:13)
[2018-11-16] MEDS: ROCEPHIN 1 GM in NS 50 ML IV SCH (20:13)
[2018-11-17 05:49] LABS: ALLEN TEST YES; BE 18.9 mmoll (-3.0-3.0); BLOOD TYPE ARTERIAL; HCO3-(ACT) 39.7 mmoll (20.0-26.0); METHB 0.4 % (0.0-1.5); O2(CT) 18.7 mL/dL (15.0-23.0); O2HB 96.9 % (95.0-99.0); PO2(98.6) 113 mmHg (60-100); SAMPLE BLOOD; SAO2 97.9 % (95.0-100.0); THB 13.6 g/dL (11.5-17.4); pH(98.6) 7.52 (7.35-7.45)
[2018-11-17 05:51] LABS: MODALITY CANNULA; PCO2(98.6) 55 mmHg (35-45)
[2018-11-17 06:17] LABS: BASO# 0.02 X1000 (0.0-0.2); BASO% 0.1 % (0.0-0.8); EOS# 0.03 X1000 (0.0-0.7); EOS% 0.2 % (0.0-10.0); HEMATOCRIT 38.9 % (37.0-47.0); HEMOGLOBIN 13.1 g/dL (12.0-16.0); IMM GRAN# 0.39 X1000 (0.0-0.04); IMM GRAN% 2.4 % (0.0-0.5); LYMPH# 0.93 X1000 (1.2-3.4); LYMPH% 5.8 % (20.5-51.1); MCH 28.4 PG (27-31); MCHC 33.7 g/dL (33-37); MCV 84.4 FL (81-99); MONO# 0.84 X1000 (0.11-0.59); MONO% 5.2 % (1.7-9.3); MPV 8.6 FL (7.4-10.4); NEUT# 13.92 X1000 (1.4-6.5); NEUT% 86.3 % (42.2-75.2); PLT 388 X1000 (130-400); RBC 4.61 XMIL (4.2-5.4); RDW 13.6 % (11.5-14.5); WBC 16.13 X1000 (4.8-10.8)
[2018-11-17] MEDS: SYNTHROID PO SCH (06:17)
[2018-11-17 06:28] LABS: ESTIMATED GFR > 60
[2018-11-17 06:37] LABS: AGAP 9; BUN 18 mg/dL (8-22); CALCIUM 8.6 mg/dL (8.8-10.2); CHLORIDE 78 mmol/L (98-107); COSMO 263; CREATININE 0.5 mg/dL (0.5-0.9); GLUCOSE 166 mg/dL (70-104); POTASSIUM 3.3 mmol/L (3.5-5.1); SODIUM 128 mmol/L (136-145); TCO2 41 mmol/L (25-35)
[2018-11-17 06:43] LABS: LYMPHS 10 % (21-51); SEGS 88 % (42-75)
[2018-11-17] MEDS: DUONEB (A & A) INH SCH ×5 (07:41→23:51)
[2018-11-17] MEDS: HYZAAR 100/12.5 MG TAB PO SCH (08:59)
[2018-11-17] MEDS: CYMBALTA PO SCH ×2 (08:59→21:18)
[2018-11-17] MEDS: BYSTOLIC PO SCH (08:59)
[2018-11-17] MEDS: NORVASC PO SCH (08:59)
[2018-11-17] MEDS: KLOR-CON PO SCH (08:59)
[2018-11-17] MEDS: LASIX IV SCH (09:00)
[2018-11-17] MEDS: SOLU-MEDROL IV SCH ×2 (09:00→21:18)
--- NOTE | 2018-11-17 11:26 | PROGRESS NOTE ---
DATE: 11/17/2018 SUBJECTIVE: Ms. Varela is doing fairly well except that her ABGs reveal a pCO2 of 55, which may be close to normal for her. However, her sodium went down to 128, and potassium is 3.2, both low and possibly a diuretic effect. We are going to cut down on the Lasix from 40 to 20 mg and start some IV fluids. Overall condition is otherwise unchanged. cc: Seth Greer MD
[2018-11-17] MEDS: NS + KCL 20 MEQ 1,000 ML IV SCH (11:32)
[2018-11-17] MEDS ORDERED: LASIX IV ONE (16:54)
--- NOTE | 2018-11-17 18:21 | PULMONOLOGY PROGRESS NOTE ---
DATE: 11/17/2018 SUBJECTIVE: The patient is awake, alert and conversant. She reports she feels a little better. She has not completely regained her strength. OBJECTIVE: The patient has been afebrile for the last 24 hours. Blood pressure 152/79, heart rate 69, respiratory rate 18, oxygen saturation 99% on 4.5 L. HEENT: Pupils are equal and reactive. Oropharynx is clear. Neck is supple. Chest reveals mild prolonged expiratory phase. Cardiac exam: S1, S2. Abdomen is obese and soft. Extremities reveal 1+ peripheral edema. LABORATORY DATA: White blood count 16.18, hemoglobin 13.1, platelet count 388,000. Sodium 128, potassium 3.3, chloride 78, bicarbonate 41, BUN 18, creatinine 0.5. Arterial blood gas reveals a pH 7.52, pCO2 of 55, pO2 of 113. IMPRESSION: 1. An 78-year-old with chronic hypoxemic and hypercapnic respiratory failure. 2. Chronic obstructive pulmonary disease exacerbation. 3. Morbid obesity with a body mass index greater than 40. 4. Hyponatremia. PLAN: 1. Continue current treatment regimen. 2. Encourage patient to limit free water intake. 3. Continue oxygen and BiPAP if needed. 4. Two-view chest x-ray tomorrow. 5. Hopefully the patient can be discharged this weekend or early next week. cc: MD Seth Mars MD
[2018-11-17] MEDS: ROCEPHIN 1 GM in NS 50 ML IV SCH (21:18)
[2018-11-17] MEDS: LEVAQUIN 500 MG/D5W 500 MG/100 ML IVPB IV SCH (21:18)
[2018-11-17] MEDS: TESSALON PO PRN (21:21)
[2018-11-18] MEDS ORDERED: ZOFRAN IV PRN (01:54)
[2018-11-18 05:24] LABS: URINE SOURCE CLEAN CATCH
[2018-11-18 05:59] LABS: BILIRUBIN URINE NEGATIVE (NEGATIVE); BLOOD URINE TRACE (NEGATIVE); COLOR YELLOW; GLUCOSE URINE NEGATIVE (NEGATIVE); KETONE URINE NEGATIVE (NEGATIVE); LEUKOCYTES URINE LARGE (NEGATIVE); NITRITE URINE NEGATIVE (NEGATIVE); PROTEIN URINE TRACE mg/dL (NEGATIVE); SP GRAVITY URINE 1.008; TURBIDITY URINE HAZY (CLEAR); UR EPITHELIAL CELLS <10 /HPF (<10); URINE BACTERIA NEGATIVE /HPF; URINE RBC <10 /HPF (<10); URINE WBC TNTC /HPF (<10); UROBILINOGEN URINE NORMAL (NORMAL)
[2018-11-18] MEDS: SYNTHROID PO SCH (06:09)
[2018-11-18 07:28] LABS: AGAP 3; BUN 22 mg/dL (8-22); CALCIUM 8.3 mg/dL (8.8-10.2); CHLORIDE 79 mmol/L (98-107); COSMO 261; CREATININE 0.6 mg/dL (0.5-0.9); ESTIMATED GFR > 60; GLUCOSE 168 mg/dL (70-104); POTASSIUM 2.8 mmol/L (3.5-5.1); SODIUM 126 mmol/L (136-145); TCO2 44 mmol/L (25-35)
[2018-11-18] MEDS: DUONEB (A & A) INH SCH ×5 (07:48→22:38)
[2018-11-18] MEDS: BYSTOLIC PO SCH (08:46)
[2018-11-18] MEDS: NORVASC PO SCH (08:47)
[2018-11-18] MEDS: KLOR-CON PO SCH ×3 (08:47→17:08)
[2018-11-18] MEDS: CYMBALTA PO SCH ×2 (08:48→20:40)
[2018-11-18] MEDS: SOLU-MEDROL IV SCH ×2 (08:48→20:41)
[2018-11-18] MEDS: HYZAAR 100/12.5 MG TAB PO SCH (08:48)
[2018-11-18] MEDS: LASIX IV SCH (08:49)
[2018-11-18] MEDS ORDERED: KLOR-CON PO ONE ×2 (10:53→16:00)
[2018-11-18] MEDS ORDERED: NACL 3% 200 ML IV ONE (10:56)
[2018-11-18] MEDS: NS + KCL 20 MEQ 1,000 ML IV SCH (11:22)
--- NOTE | 2018-11-18 12:54 | PROGRESS NOTE ---
DATE: 11/18/2018 VITAL SIGNS: Temperature 97.9 degrees, heart rate 74, respirations 19, blood pressure 161/70, O2 saturation 99% on 6 L nasal oxygen. LABORATORY: Hemoglobin 13.1, hematocrit 38.9, white blood count 16,000. Sodium 126, potassium 2.8, BUN 22, creatinine 0.6, glucose 168, calcium 8.3. X-RAYS: Last chest x-ray showed improvement with no evidence of pleural fluid collection or pneumothorax. The patient states that she uses 6 L nasal oxygen routinely at home. She lives at home with several other family members. PLAN: Correct electrolytes. Dr. Stubbs is seeing also. The patient may be able to go home once electrolytes are corrected. cc: MD Seth Allen MD
[2018-11-18] MEDS: POTASSIUM CHLORIDE 20 MEQ/SWI 20 MEQ/100 ML IVPB IV SCH ×2 (13:50→17:07)
[2018-11-18] MEDS ORDERED: LASIX IV ONE (14:00)
--- NOTE | 2018-11-18 15:18 | PULMONOLOGY PROGRESS NOTE ---
DATE: 11/18/2018 SUBJECTIVE: The patient is awake and alert. She reports that she is not drinking extra water. She reports her breathing has improved. She has a good appetite, and she ate all of her breakfast. OBJECTIVE: Vital Signs: The patient has been afebrile for the last 24 hours. Blood pressure 161/71, heart rate 74, respiratory rate 19, oxygen saturation 96% on nasal cannula. HEENT: Pupils are equal and reactive. Oropharynx appears clear. Neck: Supple. Chest: Good air entry bilaterally without wheezing or rhonchi. She has prolonged expiratory phase. Cardiac: S1 and S2. Abdomen: Soft. Extremities: Chronic vascular disease. LABORATORIES: Sodium 126, potassium 2.8, chloride 79, bicarbonate 24, BUN is 22, creatinine 0.6, glucose 168. IMPRESSION: An 78 year old with: 1. Chronic hypoxemic respiratory failure. 2. Chronic hypercapnic respiratory failure. 3. Chronic obstructive pulmonary disease exacerbation. 4. Morbid obesity. 5. Hyponatremia. PLAN: 1. Continue current treatment regimen. 2. Encourage the patient to limit water intake. 3. Cycle oxygen and BiPAP. 4. We will give a 200 mL infusion of 3% saline. 5. Correct electrolytes. 6. Hopefully the patient can be discharged home this weekend or next week. cc: MD Seth Mars MD
[2018-11-18 17:17] LABS: AGAP 4; BUN 23 mg/dL (8-22); CALCIUM 8.7 mg/dL (8.8-10.2); CHLORIDE 82 mmol/L (98-107); COSMO 273; CREATININE 0.8 mg/dL (0.5-0.9); ESTIMATED GFR > 60; GLUCOSE 184 mg/dL (70-104); POTASSIUM 3.9 mmol/L (3.5-5.1); SODIUM 132 mmol/L (136-145); TCO2 46 mmol/L (25-35)
--- NOTE | 2018-11-18 18:53 | Diag Imaging Result Doc PS360 ---
CHEST-2 VIEWS - 11/18/2018 INDICATION: abnormal exam COMPARISON: 11/14/2018 FINDINGS: The lungs are normally expanded and clear. Heart size and mediastinal contours are normal. No pneumothorax or pleural effusion. IMPRESSION: Negative exam. Electronically signed by Shawn Young 11/18/2018 6:50 PM
[2018-11-18] MEDS: ROCEPHIN 1 GM in NS 50 ML IV SCH (20:41)
[2018-11-18] MEDS: LEVAQUIN 500 MG/D5W 500 MG/100 ML IVPB IV SCH (20:41)
[2018-11-18] MEDS: TESSALON PO PRN (20:49)
[2018-11-19] MEDS: SYNTHROID PO SCH (06:31)
[2018-11-19 06:54] LABS: AGAP 8; BUN 24 mg/dL (8-22); CALCIUM 8.3 mg/dL (8.8-10.2); CHLORIDE 91 mmol/L (98-107); COSMO 277; CREATININE 0.6 mg/dL (0.5-0.9); ESTIMATED GFR > 60; GLUCOSE 158 mg/dL (70-104); POTASSIUM 4.5 mmol/L (3.5-5.1); SODIUM 135 mmol/L (136-145); TCO2 36 mmol/L (25-35)
[2018-11-19] MEDS: SOLU-MEDROL IV SCH ×2 (08:05→19:58)
[2018-11-19] MEDS: LASIX IV SCH (08:06)
[2018-11-19] MEDS: BYSTOLIC PO SCH (08:09)
[2018-11-19] MEDS: CYMBALTA PO SCH ×2 (08:10→20:04)
[2018-11-19] MEDS: KLOR-CON PO SCH ×3 (08:11→17:01)
[2018-11-19] MEDS: HYZAAR 100/12.5 MG TAB PO SCH (08:11)
[2018-11-19] MEDS: NORVASC PO SCH (08:12)
[2018-11-19] MEDS: DUONEB (A & A) INH SCH ×5 (08:19→22:32)
--- NOTE | 2018-11-19 10:51 | PROGRESS NOTE ---
DATE: 11/19/2018 Vital signs stable with temperature 97.8 degrees, heart rate 69, respirations 18, blood pressure 164/69, O2 saturation on 6 L nasal oxygen of 99%. Laboratory improved with sodium 135, potassium 4.5, BUN 24, creatinine 0.6, glucose 158, calcium 8.3. The patient is alert and feels well. She is in good spirits. Chest is clear to auscultation. Abdomen is soft. There is no ankle edema. PLAN: Hopefully, discharge early in the week. cc: MD Seth Allen MD
[2018-11-19] MEDS: ROCEPHIN 1 GM in NS 50 ML IV SCH (20:03)
[2018-11-19] MEDS: LEVAQUIN 500 MG/D5W 500 MG/100 ML IVPB IV SCH (20:04)
[2018-11-19] MEDS: TESSALON PO PRN (20:10)
--- NOTE | 2018-11-19 21:28 | PULMONOLOGY PROGRESS NOTE ---
DATE: 11/19/2018 SUBJECTIVE: The patient is awake, alert, and conversant. She reports she is breathing well. She denies cough, sputum production, or shortness of breath. PHYSICAL EXAMINATION: General: Reveals an obese white female with a BMI of 44, resting comfortably and in no distress. Vital signs: She has been afebrile for the last 24 hours. Blood pressure 120/55, heart rate 76, respiratory rate 18, oxygen saturation 98% on 6 L per nasal cannula. HEENT: Pupils are equal and reactive. Oropharynx appears clear. Neck: Supple. Chest: Reveals prolonged expiratory phase with crackles in the lung bases. Cardiac Exam: S1-S2. Abdomen: Obese and soft. Extremities: Without edema. LABORATORIES: Sodium 135, potassium 4.5, chloride 91, bicarbonate 36, BUN 24, creatinine 0.6. IMPRESSION: An 78-year-old with 1. Chronic hypoxemic respiratory failure. 2. Chronic hypercapnic respiratory failure. 3. Chronic obstructive pulmonary disease exacerbation. 4. Morbid obesity. PLAN: 1. Continue current treatment. 2. Cycle BiPAP and oxygen as necessary. 3. No additional recommendations at this juncture. cc: MD Seth Mars MD
[2018-11-20] MEDS: SYNTHROID PO SCH (06:03)
[2018-11-20] MEDS: DUONEB (A & A) INH SCH ×2 (07:47→11:26)
[2018-11-20 07:50] VITALS: BP 165/75
[2018-11-20] MEDS: NORVASC PO SCH (09:14)
[2018-11-20] MEDS: CYMBALTA PO SCH (09:14)
[2018-11-20] MEDS: BYSTOLIC PO SCH (09:15)
[2018-11-20] MEDS: SOLU-MEDROL IV SCH (09:15)
[2018-11-20] MEDS: HYZAAR 100/12.5 MG TAB PO SCH (09:15)
[2018-11-20] MEDS: LASIX IV SCH (09:16)
[2018-11-20] MEDS: KLOR-CON PO SCH (09:16)
--- NOTE | 2018-11-20 10:12 | DISCHARGE SUMMARY ---
ADMISSION DATE: 11/09/2018 DISCHARGE DATE: 11/19/2018 HISTORY/HOSPITAL COURSE: Ms. Varela is an 78-year-old white female, a known case of COPD, was admitted with acute exacerbation. She was treated with IV Levaquin as well as IV Rocephin. She had blood culture positive for E coli and urine culture showed some yeast. While she was in the hospital, she also developed possibly diuretic-induced hyponatremia and hypokalemia that were treated with normal saline. Lasix was reduced to 20 mg and it helped significantly. She had respiratory therapy with bronchodilators and had a pulmonary consult. Her general condition improved and we are going to discharge her today. She has received IV antibiotics for about 10 days. FINAL DIAGNOSES: 1. Acute exacerbation of chronic obstructive pulmonary disease. 2. Obesity. 3. Hypertension. 4. Hyponatremia. 5. Hypokalemia. 6. Escherichia coli septicemia. PLAN: We will see her in the office in about 7 days. cc: Seth Greer MD
== END 2018-11-20 11:56 | disposition home or self-care (01) | DRG 190 ==
LOC: DIRADM 11:19 → EDIPHOLD 11:51 → 3N 19:33
PROVIDERS: ADMIT Internal Medicine; ATTEND Internal Medicine

== ENCOUNTER 2019-06-03 16:24 | Inpatient (IN) ==
[2019-06-03 17:21] LABS: BASO# 0.01 X1000 (0.0-0.2); BASO% 0.1 % (0.0-0.8); EOS% 1.5 % (0.0-10.0); HEMATOCRIT 36.7 % (37.0-47.0); HEMOGLOBIN 11.5 g/dL (12.0-16.0); IMM GRAN# 0.02 X1000 (0.0-0.04); IMM GRAN% 0.3 % (0.0-0.5); LYMPH# 1.14 X1000 (1.2-3.4); LYMPH% 16.8 % (20.5-51.1); MCH 27.5 PG (27-31); MCHC 31.3 g/dL (33-37); MCV 87.8 FL (81-99); MONO# 0.61 X1000 (0.11-0.59); MPV 9.1 FL (7.4-10.4); NEUT# 4.89 X1000 (1.4-6.5); NEUT% 72.3 % (42.2-75.2); PLT 263 X1000 (130-400); RBC 4.18 XMIL (4.2-5.4); RDW 14.6 % (11.5-14.5); WBC 6.77 X1000 (4.8-10.8)
--- NOTE | 2019-06-03 17:35 | Diag Imaging Result Doc PS360 ---
EXAM: CHEST-1 VIEW 06/03/2019 HISTORY: edema TECHNIQUE: AP portable upright at 1722 COMMENT: Considering differences in technique there has been no significant change since 11/18/2018. IMPRESSION: Stable chest. Electronically signed by Ryley Fitzgerlad 06/03/2019 5:32 PM
[2019-06-03 17:36] LABS: AGAP 11; ALB/GLOB RATIO 1.5; ALBUMIN 3.6 g/dL (3.5-5.0); ALKALINE PHOSPHATASE 71 U/L (32-104); BUN 12 mg/dL (8-22); CALCIUM 8.8 mg/dL (8.8-10.2); CHLORIDE 94 mmol/L (98-107); COSMO 284; CREATININE 0.5 mg/dL (0.5-0.9); ESTIMATED GFR > 60; GLUCOSE 158 mg/dL (70-104); GOT 29 U/L (10-30); GPT 16 U/L (10-36); POTASSIUM 2.8 mmol/L (3.5-5.1); SODIUM 141 mmol/L (136-145); TCO2 36 mmol/L (25-35); TOTAL BILIRUBIN 0.43 mg/dL (0.20-1.00)
[2019-06-03 18:40] LABS: URINE SOURCE CLEAN CATCH
[2019-06-03] MEDS ORDERED: ULTRAM PO PRN (18:40)
[2019-06-03] MEDS ORDERED: [UNRECOGNIZED DRUG - OTHER] NEB SCH (18:45)
[2019-06-03 18:50] LABS: BILIRUBIN URINE NEGATIVE (NEGATIVE); BLOOD URINE NEGATIVE (NEGATIVE); COLOR YELLOW; GLUCOSE URINE NEGATIVE (NEGATIVE); KETONE URINE NEGATIVE (NEGATIVE); LEUKOCYTES URINE SMALL (NEGATIVE); NITRITE URINE NEGATIVE (NEGATIVE); PH URINE 6.5; PROTEIN URINE NEGATIVE (NEGATIVE); SP GRAVITY URINE 1.014; TURBIDITY URINE HAZY (CLEAR); UR EPITHELIAL CELLS >10 /HPF (<10); URINE BACTERIA 3+ /HPF; URINE RBC <10 /HPF (<10); UROBILINOGEN URINE NORMAL (NORMAL)
--- NOTE | 2019-06-03 19:27 | HISTORY AND PHYSICAL ---
HISTORY OF PRESENT ILLNESS: Ms. Varela, who is 78-year-old white female, a known case of COPD, hypertension, was admitted because of severe cellulitis involving both legs. She has gross stasis edema with cellulitis on both legs. She is a known case of COPD, has hypertension, mild congestive heart failure. She has a pulmonary nodule in the right lower lobe, which is carcinoma; however, it is a slowly growing tumor. She is being followed by Dr. Stubbs on a regular basis. She has been gaining lot of fluid and has increasing edema on the leg. Now, she started having pain, tenderness, redness in the skin with some drainage, especially on the on the right leg. She has bilateral stasis edema with cellulitis and stasis dermatitis. PAST SURGICAL HISTORY: She had 1 back surgery with fusion. She had both hips replaced, both knees replaced. She had hysterectomy, multiple skin tumors removed and tumors removed from both breasts. SOCIAL HISTORY: She used to smoke in the past. Does not smoke for last many years, has not been smoking. Does not drink. Her BMI is 39.7. ALLERGIES: She is allergic to methocarbamol, acetaminophen, budesonide, celecoxib. MEDICATIONS: Include tramadol, levothyroxine, furosemide, and Bystolic as well as rosuvastatin and potassium supplement. REVIEW OF SYSTEMS: Other than a stinging feeling in both legs with increasing swelling and drainage. She also has some shortness of breath. No chest pain. She has a history of intermittent hemoptysis. PHYSICAL EXAMINATION: VITAL SIGNS: Reveal temperature normal, pulse 73 per minute, respiratory rate 17 per minute, blood pressure 149/90. HEENT: Head normocephalic. Pupils PERRLA. Fundus examination normal. NECK: Supple. JVP normal. ENT EXAMINATION: Unremarkable. There is no evidence of lymphadenopathy, thyroid enlargement. EXTREMITIES: Pedal edema, calf tenderness, anemia, cyanosis or clubbing. Pedal pulses well felt. BREAST EXAM: Not done. CHEST: Normal inspection. LUNGS: Reveal some occasional wheezing. HEART: PMI in the normal position. Heart sounds normal. No murmur, gallop or rub noted. ABDOMEN: Obese. No guarding, rigidity, free fluid, masses, or organomegaly. Bowel sounds normal. RECTAL: Deferred. FRONT DESK LEAD: Higher functions normal. Cranial nerves normal. Motor and sensory system examination unremarkable. Deep tendon reflexes normal. Plantars downgoing. SKULL AND SPINE: Examination normal for age. No cerebellar signs or signs of meningeal irritation locomotor System. SKIN: Unremarkable except for gross edema on both legs and the patient has severe stasis dermatitis and cellulitis. PLAN: Start IV Lasix as well as IV Levaquin. Get cultures. cc: Seth Greer MD
[2019-06-03] MEDS: CRESTOR PO SCH (20:29)
[2019-06-03] MEDS: LEVAQUIN 750 MG/D5W 750 MG/150 ML IVPB IV SCH (20:29)
[2019-06-03] MEDS: KLOR-CON PO SCH (20:29)
[2019-06-03] MEDS: LASIX IV SCH (20:29)
[2019-06-03] MEDS: LOVENOX SUBQ SCH (20:30)
--- NOTE | 2019-06-03 20:36 | EKG Report ---
Test Performed on : 06/03/2019 4:50:12 PM Test Reason : SOB Blood Pressure : / mmHG Vent. Rate : 072 BPM Atrial Rate : 072 BPM P-R Int : 146 ms QRS Dur : 088 ms QT Int : 440 ms P-R-T Axes : 033 003 055 degrees QTc Int : 481 ms Normal sinus rhythm. Nonspecific ST and T wave abnormality Abnormal ECG When compared with ECG of 09-NOV-2018 13:44, QT has lengthened Unconfirmed Result
[2019-06-03] MEDS ORDERED: CYMBALTA PO SCH (21:00)
[2019-06-03] MEDS: DUONEB (A & A) INH SCH (23:02)
[2019-06-04] MEDS: DUONEB (A & A) INH SCH ×4 (03:44→22:35)
[2019-06-04] MEDS: LOVENOX SUBQ SCH ×3 (06:55→17:46)
[2019-06-04] MEDS: LASIX IV SCH ×3 (06:55→17:46)
[2019-06-04] MEDS: SYNTHROID PO SCH (06:56)
[2019-06-04 07:10] LABS: AGAP 12; BUN 11 mg/dL (8-22); CALCIUM 8.7 mg/dL (8.8-10.2); CHLORIDE 93 mmol/L (98-107); COSMO 282; CREATININE 0.7 mg/dL (0.5-0.9); ESTIMATED GFR > 60; GLUCOSE 125 mg/dL (70-104); POTASSIUM 3.4 mmol/L (3.5-5.1); SODIUM 141 mmol/L (136-145); TCO2 36 mmol/L (25-35)
--- NOTE | 2019-06-04 10:12 | PROGRESS NOTE ---
DATE: 06/04/2019 The patient is recovering from a congestive heart failure. Her potassium has come back up from 2.8 to 3.4. BUN was 11, creatinine 0.7. Urinalysis revealed 3+ bacteria. She is getting IV antibiotics for her cellulitis on the legs. Overall condition is unchanged. We will continue with the current management on her. -8 cc: Seth Greer MD
[2019-06-04] MEDS: CYMBALTA PO SCH (10:16)
[2019-06-04] MEDS: BYSTOLIC PO SCH (10:16)
[2019-06-04] MEDS: KLOR-CON PO SCH ×2 (10:16→21:34)
[2019-06-04] MEDS: LEVAQUIN 750 MG/D5W 750 MG/150 ML IVPB IV SCH ×2 (17:14→17:46)
[2019-06-04] MEDS: CRESTOR PO SCH (21:34)
[2019-06-05] MEDS: DUONEB (A & A) INH SCH ×4 (03:39→22:43)
[2019-06-05] MEDS: LASIX IV SCH ×2 (05:22→18:20)
[2019-06-05] MEDS: SYNTHROID PO SCH ×2 (05:22→06:26)
[2019-06-05] MEDS: LOVENOX SUBQ SCH ×2 (05:22→18:20)
[2019-06-05 07:16] LABS: AGAP 10; BUN 15 mg/dL (8-22); CHLORIDE 95 mmol/L (98-107); COSMO 285; CREATININE 0.6 mg/dL (0.5-0.9); ESTIMATED GFR > 60; GLUCOSE 115 mg/dL (70-104); POTASSIUM 3.3 mmol/L (3.5-5.1); SODIUM 142 mmol/L (136-145); TCO2 37 mmol/L (25-35)
[2019-06-05] MEDS: BYSTOLIC PO SCH ×2 (08:21→12:35)
[2019-06-05] MEDS: CYMBALTA PO SCH (08:21)
[2019-06-05] MEDS: KLOR-CON PO SCH ×2 (08:21→21:27)
--- NOTE | 2019-06-05 11:26 | PROGRESS NOTE ---
DATE: 06/05/2019 The patient's wound is being dressed by Ms. Pruitt, the Wound Care nurse. Her potassium is 3.3. That is partly because of the IV Lasix that she is getting. Her leg edema is improving. Lungs sound much better. She has COPD, and she usually has wheezing. Will continue the IV antibiotics on her. -0 cc: Seth Greer MD
[2019-06-05] MEDS: LEVAQUIN 750 MG/D5W 750 MG/150 ML IVPB IV SCH (18:19)
--- NOTE | 2019-06-05 19:28 | Extremity Venous Study ---
PROCEDURE NAME: Venous U/S Bilateral Legs - 06/03/2019 PROCEDURE: Bilateral lower extremity venous duplex and color flow imaging study using a [employer] Vivid E9 ultrasound system with a 9L-D transducer. REFERRING PHYSICIAN: Yanira. 78-year-old female. 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 INDICATIONS: Bilateral lower extremity pain and edema suggestive of deep venous thrombosis. FINDINGS: The right common femoral vein and its branches, deep and superficial femoral veins were satisfactorily imaged. They had flow through them and were compressible. Right popliteal vein and deep veins below the right knee were all compressible and had flow through them. The superficial veins of the right lower extremity were compressible throughout their length. The left common femoral vein and its branches, deep and superficial femoral veins were also satisfactorily imaged. They had flow through them and were compressible. Left popliteal vein and deep veins of the left knee were all compressible and had flow through them. The superficial veins of the left lower extremity were compressible throughout their length. INTERPRETATION: No evidence of acute deep or superficial venous thrombosis of the bilateral lower extremities. cc: MD Maycol Vasquez MD Amit V. Vora, MD
[2019-06-05] MEDS: CRESTOR PO SCH (21:27)
[2019-06-06] MEDS: DUONEB (A & A) INH SCH ×4 (03:26→20:50)
[2019-06-06] MEDS: LOVENOX SUBQ SCH ×2 (05:51→17:57)
[2019-06-06] MEDS: SYNTHROID PO SCH ×2 (05:51→07:26)
[2019-06-06] MEDS: LASIX IV SCH ×2 (05:51→17:57)
[2019-06-06] MEDS: KLOR-CON PO SCH ×2 (10:53→23:39)
[2019-06-06] MEDS: CYMBALTA PO SCH (10:53)
[2019-06-06] MEDS: BYSTOLIC PO SCH (10:54)
--- NOTE | 2019-06-06 11:14 | PROGRESS NOTE ---
DATE: 06/06/2019 The patient's cellulitis is slowly improving. So far, blood cultures are negative. Urine culture showed mixed zamzam. Venous flow studies are negative. Potassium was 3.3. We are going to repeat electrolytes in the morning. Overall condition is otherwise stable. Will continue with the current management on her. -4 cc: Seth Greer MD
[2019-06-06] MEDS: LEVAQUIN 750 MG/D5W 750 MG/150 ML IVPB IV SCH (17:57)
[2019-06-06] MEDS: CRESTOR PO SCH (23:39)
[2019-06-07] MEDS: DUONEB (A & A) INH SCH ×3 (04:45→16:26)
[2019-06-07] MEDS: LOVENOX SUBQ SCH ×2 (07:07→18:17)
[2019-06-07] MEDS: SYNTHROID PO SCH (07:07)
[2019-06-07] MEDS: LASIX IV SCH (07:07)
[2019-06-07 07:40] LABS: AGAP 9; BUN 13 mg/dL (8-22); CHLORIDE 96 mmol/L (98-107); COSMO 280; CREATININE 0.6 mg/dL (0.5-0.9); ESTIMATED GFR > 60; GLUCOSE 114 mg/dL (70-104); POTASSIUM 3.7 mmol/L (3.5-5.1); SODIUM 140 mmol/L (136-145); TCO2 35 mmol/L (25-35)
--- NOTE | 2019-06-07 10:08 | PROGRESS NOTE ---
DATE: 06/07/2019 Ms. Varela is feeling better. Blood pressure goes down at times. Leg looks better. Lungs are clear. We are going to discontinue her IV Lasix as well as bystolic. She is doing better. -0 cc: Seth Greer MD MTDD
[2019-06-07] MEDS: KLOR-CON PO SCH ×2 (10:22→23:46)
[2019-06-07] MEDS: CYMBALTA PO SCH (10:23)
[2019-06-07] MEDS: LEVAQUIN 750 MG/D5W 750 MG/150 ML IVPB IV SCH (18:17)
[2019-06-07] MEDS: LASIX PO SCH (23:46)
[2019-06-07] MEDS: CRESTOR PO SCH (23:46)
[2019-06-08] MEDS: DUONEB (A & A) INH SCH ×3 (00:06→09:43)
[2019-06-08] MEDS: SYNTHROID PO SCH (06:48)
[2019-06-08] MEDS: LOVENOX SUBQ SCH (06:48)
[2019-06-08] MEDS: KLOR-CON PO SCH (11:08)
[2019-06-08] MEDS: LASIX PO SCH (11:08)
[2019-06-08] MEDS: CYMBALTA PO SCH (11:08)
[2019-06-08 11:15] VITALS: BP 91/63
--- NOTE | 2019-06-08 11:23 | PROGRESS NOTE ---
DATE: 06/08/2019 SUBJECTIVE: Ms. Varela doing better. Her cellulitis has improved significantly. OBJECTIVE: We will in her potassium is 3.7. PLAN: We will discharge her today. cc: Seth Greer MD
--- NOTE | 2019-06-08 21:07 | DISCHARGE SUMMARY ---
ADMISSION DATE: 06/03/2019 DISCHARGE DATE: 06/08/2019 DIAGNOSIS OF ADMISSION: Ms. Varela was admitted with severe cellulitis of both legs, moreover when she came in she had severe hypokalemia, potassium was 2.8. Blood sugar was 158. Her BUN and creatinine were normal. The potassium came back up, the final potassium was 3.7. CBC had revealed white count of 6.77, hemoglobin was 11.5. Urinalysis revealed 10 to 20 WBCs, 3+ bacteria. The cultures from the urine as well as blood cultures were negative. She was treated with IV antibiotics, namely Levaquin, and this helped her significantly. She was seen by the wound care nurse, Sonal, who considerably helped her. We will continue with the current management with Lasix, Duloxetine, levofloxacin, levothyroxine, potassium supplement, Rosuvastatin and tramadol at home. She will be discharged home today. FINAL DIAGNOSIS: 1. Severe cellulitis, both legs. 2. Severe hypokalemia. 3. The patient has chronic obstructive pulmonary disease. 4. Obesity. 5. Hypertension. cc: Seth Greer MD MTDD
== END 2019-06-08 13:48 | disposition home or self-care (01) | DRG 603 ==
LOC: EDIPHOLD 16:24 → ED 16:24 → OBSVTOIN 17:09 → 4N 18:31
PROVIDERS: ADMIT Internal Medicine; ATTEND Internal Medicine